=== PATIENT | male | born 1965 | race African-American/Black ===

== ENCOUNTER → 2017-04-23 | Day surgery (SDC) | payer BC ==
[2017-04-22 10:34] VITALS: BMI 33.5
[~2017-04-23] MED LIST: Fentanyl 100 MCG/2 ML VIAL IV PRN; Fentanyl 100 MCG/2 ML VIAL ONE; HYDROcodone/Acetaminophen 5/325 mg Tablet ONE; HYDROcodone/Acetaminophen 5/325 mg Tablet PO PRN; Ketorolac Tromethamine 30 MG/ML VIAL IVP PRN; Lidocaine 1% PF 5 ML VIAL ONE; Midazolam HCl 2 mg/2 ml Vial ONE; Ondansetron HCl/PF 4 MG/2 ML Vial IVP PRN; Promethazine HCl 25 MG/ML VIAL IM PRN; Propofol 200 MG/20 ML VIAL ONE; Ropivacaine 0.2% 550 ML 550 ML NERVE BLCK SCH; Ropivacaine 0.5% HCl/PF (150 MG/30 ML VIAL) ONE; Zolpidem Tartrate 5 MG TAB PO PRN; traMADol HCl 50 MG TAB PO PRN
--- NOTE | 2017-04-23 16:11 | RAD ---
TWO VIEWS OF THE LEFT KNEE 04/23/17 COMPARISON: 02/19/17 HISTORY: Manipulation of ligament in operating room. FINDINGS: Patient is status post total knee arthroplasty. There is a stable screw and washer associated with th e proximal left tibial shaft. There is a moderate sized knee joint effusion. There is soft tissue swelling in the suprapatellar bur sa and the quadriceps tendon distally is ill-defined. Injury in this region is a possibility. There is a nondisplaced lucency involving the superior aspect of the patella involving the anterior a nd posterior cortex, new, suggesting a nondisplaced superior patellar fracture, potentially on the ba sis of an avulsion type fracture associated with the quadriceps tendon insertion. No evidence for dislocation. IMPRESSION: Postoperative changes as above. There is a knee joint effusion and there is soft tissue swelling ove rlying an ill-defined quadriceps tendon. Nondisplaced avulsion fracture suspected involving the super ior aspect of the patella noted on the lateral view. POS: [facility]
--- NOTE | 2017-04-24 06:07 | OP ---
DATE OF PROCEDURE: 04/23/2017 PREOPERATIVE DIAGNOSIS: Stiff left knee total knee arthroplasty. POSTOPERATIVE DIAGNOSES: 1. Left stiff total knee arthroplasty, history of previous anterior cruciate ligament reconstruction. 2. Patellar superior pole non-displaced fracture. STAFF: Poli Oliveira M.D. WAREHOUSE INCENTIVE SELECTOR: None. ANESTHESIA: Anderson Jones M.D. The patient received general endotracheal intubation with femoral block. ESTIMATED BLOOD LOSS: None. TOURNIQUET TIME: None. IMPLANTS: None. COMPLICATIONS: Superior pole patellar fracture. HISTORY OF PRESENT ILLNESS: Stefan is a 51-year-old male who underwent a left total knee arthroplasty. The patient postoperatively had significant stiffness. The patient preoperatively had range of motion from about 0-80 degrees. The patient presented to my clinic with about 0-50 degrees postoperatively having continued pain and stiffness. I discussed the risks and benefits of surgery, discussed that I will not open the knee back in and that he did have a risk of fracture, continued pain, continued stiffness, damage to vital structures, loss of life or limb. The patient understood the risks and benefits of the procedure and elected to proceed. PROCEDURE IN DETAIL: Time out was performed designating the patient's left lower extremity as the operative site based on sight, consents, and markings. The patient was placed on the table after receiving LMA block. I started with extension placing a bump under the patient's knee to work on extension of the patient's knee. I then noted with goniometer, he went from about 5-50 degrees and 5-45 degrees on the table, fully statically flexing the patient somewhere between 105 to 110 degrees based on the goniometer and intermittently took pictures of the femur and tibia and took final shots on review of the final pictures postoperatively, I could see a superior pole of the patella and had a small crack. The patient also had a small hematoma formation with a prepatellar bursa. The patient was unable to straight leg raise per my PA's report, therefore, was placed with soft tissue dressing and knee immobilizer. The patient will follow up with me in the morning so I can see the patient's extension. We will likely continue PT this week, so he can regain his motion. Even with a small patellar fracture, I am concerned it will likely not displace substantially. I would prefer to work on regaining the patient's motion given how stiff he was preoperatively. As long as he can straighten the leg, we will continue with that postoperative course. The patient will be given pain medications to go home with. I discussed the fracture with patient' s mother and the patient's and we will discuss again in the morning. MAURICE
== END ==
LOC: SDC 08:59
PROVIDERS: ATTEND Orthopaedic Surgery
PROC: 0SSDXZZ Reposition Left Knee Joint, External Approach (ICD-10-PCS; principal; 2017-04-23)
DX: T84.89XA Other specified complication of internal orthopedic prosthetic devices, implants and grafts, initial encounter (principal); S82.002A Unspecified fracture of left patella, initial encounter for closed fracture; Z79.82 Long term (current) use of aspirin; Z79.899 Other long term (current) drug therapy; Z98.890 Other specified postprocedural states
CPT/HCPCS: 96374; A4306; G8978-GP-CI; G8979-GP-CI; G8980-GP-CI; J2001; J2250; J2704; J2795; J3010

== ENCOUNTER 2018-03-13 07:10 | Outpatient (CLI) | payer OTHER | END 2018-03-13 07:11 | LOC: SCSLAB 07:10 | PROVIDERS: ATTEND Family Medicine | DX: E78.2 Mixed hyperlipidemia (principal) ==

== ENCOUNTER 2018-06-12 14:42 | Outpatient (CLI) | payer OTHER ==
--- NOTE | 2018-06-12 15:52 | RAD ---
LEFT KNEE 2 VIEWS: INDICATION: Disability examination: COMPARISON: Comparison is made to left knee films of 04/23/2017. FINDINGS: The prior exam revealed a fracture from the superior left patella with evidence of early calcificatio n along the quadriceps tendon. 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 Heterotopic bone is also seen medial joint space. Evidence of joint effusion. The prosthetic components appear in adequate position and alignment. 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 Eviden ce of joint effusion and heterotopic bone is noted. POS: [facility]
== END 2018-06-12 14:43 | disposition home or self-care (01) ==
LOC: BICRAD 14:42
PROVIDERS: ATTEND Internal Medicine
DX: Z02.71 Encounter for disability determination (principal); M60.9 Myositis, unspecified; M25.462 Effusion, left knee